=== PATIENT | female | born 1995 | race Caucasian/White ===

== ENCOUNTER → 2024-05-16 | Outpatient (CLI) | payer OTHER ==
[~2024-05-16] MED LIST: ONDA4ODT MM; PRENATAL TABLE1 EAC2 PO; TRANSDERM-SCOP1 EA13 TD; Zofran4 MG PO
[2024-05-16 15:36] LABS: Source, Urine Voided
[2024-05-16 17:55] LABS: Mucus Mod (0-Heavy); White Blood Cells, Urine TNTC /hpf (0-5)
[2024-05-16 17:56] LABS: Bacteria Many /hpf; Squamous Epithelial Cells Mod /hpf (Few)
[2024-05-16 18:01] LABS: U Amphetamine Screen Not Detected; U Barbituate Screen Not Detected; U Benzodiazapine Screen Not Detected; U Buprenorphine Screen Not Detected; U Cannabinoids Screen Not Detected; U Cocaine Screen Not Detected; U Methadone Screen Not Detected; U Methamphetamine Screen Not Detected; U Opiates Screen Not Detected; U Oxycodone Screen Not Detected; U Phencyclidine Screen Not Detected
== END ==
LOC: LAB SHORT 15:33 → LAB 15:33
PROVIDERS: Obstetrics & Gynecology
DX: Z34.81 Encounter for supervision of other normal pregnancy, first trimester (principal)
CPT/HCPCS: 81015; 87086

== ENCOUNTER 2024-05-20 15:28 | Day surgery (SDC) | payer OTHER ==
[~2024-05-20 15:28] MED LIST changes: +Lactated Ringer's 1,000 ML IV SCH; +Ondansetron HCl 2 MG / ML 2ML Vial IV SCH; -TRANSDERM-SCOP1 EA13 TD
[2024-05-20 15:35] VITALS: BP 114/87
[2024-05-20] MEDS ORDERED: TRANSDERM-SCOP1 EA13 TD (15:37)
== END 2024-05-20 16:47 | disposition home or self-care (01) ==
LOC: ATC 15:28
DX: O21.0 Mild hyperemesis gravidarum (principal); K21.9 Gastro-esophageal reflux disease without esophagitis
CPT/HCPCS: 96374; J2405; J7120

== ENCOUNTER 2024-05-22 01:05 | Day surgery (SDC) | payer OTHER ==
[~2024-05-22 01:05] MED LIST changes: -Lactated Ringer's 1,000 ML IV SCH; -Ondansetron HCl 2 MG / ML 2ML Vial IV SCH; +TRANSDERM-SCOP1 EA13 TD
[2024-05-22] MEDS ORDERED: Lactated Ringer's 1,000 ML IV SCH (06:55)
[2024-05-22] MEDS ORDERED: Ondansetron HCl 2 MG / ML 2ML Vial IV SCH (06:55)
[2024-05-22 08:57] VITALS: BP 106/91
== END 2024-05-22 10:06 | disposition home or self-care (01) ==
LOC: ATC 01:05
DX: O21.0 Mild hyperemesis gravidarum (principal); K21.9 Gastro-esophageal reflux disease without esophagitis; Z79.899 Other long term (current) drug therapy
CPT/HCPCS: 96361; 96374; J2405; J7120

== ENCOUNTER 2024-05-24 01:51 | Day surgery (SDC) | payer OTHER ==
[2024-05-24] MEDS ORDERED: Ondansetron HCl 2 MG / ML 2ML Vial IV SCH (07:10)
[2024-05-24] MEDS ORDERED: Lactated Ringer's 1,000 ML IV SCH (07:10)
[2024-05-24 09:39] VITALS: BP 103/66
== END 2024-05-24 10:51 | disposition home or self-care (01) ==
LOC: ATC 01:51
DX: O21.0 Mild hyperemesis gravidarum (principal)
CPT/HCPCS: 96361; 96374; J2405; J7120

== ENCOUNTER 2024-05-29 04:02 | Day surgery (SDC) | payer OTHER ==
[2024-05-29] MEDS ORDERED: Ondansetron HCl 2 MG / ML 2ML Vial IV SCH (06:55)
[2024-05-29] MEDS ORDERED: Lactated Ringer's 1,000 ML IV SCH (06:55)
[2024-05-29 15:25] VITALS: BP 101/69
== END 2024-05-29 16:38 | disposition home or self-care (01) ==
LOC: ATC 04:02
DX: O21.0 Mild hyperemesis gravidarum (principal); K21.9 Gastro-esophageal reflux disease without esophagitis; Z88.8 Allergy status to other drugs, medicaments and biological substances; Z79.899 Other long term (current) drug therapy
CPT/HCPCS: 96361; 96374; J2405; J7120